=== PATIENT | female | born 1980 | race Caucasian/White ===

== ENCOUNTER 2016-11-18 04:59 | Inpatient (IN) | payer MEDICAID, SELFPAY ==
[2016-11-18 05:41] VITALS: BMI 28.7
[2016-11-18] MEDS: Lactated Ringer's 1,000 ML IV SCH ×2 (05:45→06:45)
[2016-11-18 07:00] VITALS: BP 115/69; PULSE 66; RESP 18; TEMP 97.9
[2016-11-18 07:04] LABS: BASO % 0.6 % (0.0-2.0); EOS # 0.6 K/uL (0.0-0.7); EOS % 8.9 % (0.0-4.0); HEMATOCRIT 33.5 % (34.0-47.0); LYMPH # 1.8 K/uL (1.0-4.3); LYMPH % 25.8 % (20.0-40.0); MEAN CELL VOLUME 82.4 fl (81.0-99.0); MEAN CORPUSCULAR HEMOGLOBIN 27.6 pg (27.0-31.0); MEAN CORPUSCULAR HGB CONC 33.5 g/dL (33.0-37.0); MEAN PLATELET VOLUME 9.3 fl (7.2-11.7); MONO # 0.4 K/uL (0.0-0.8); NEUT # 4.1 K/uL (1.8-7.0); NEUT % 58.7 % (50.0-75.0); RED CELL DISTRIBUTION WIDTH 16.5 % (11.5-14.5); WHITE BLOOD COUNT 7.1 K/uL (4.8-10.8)
[2016-11-18] MEDS ORDERED: Morphine 1 mg/ml preservative-free Inj(Duramorph) ONE (07:35)
[2016-11-18] MEDS ORDERED: Propofol 10 mg/ml Inj (20 ML) ONE (07:35)
[2016-11-18] MEDS ORDERED: Phenylephrine 10 mg/ml Inj ONE (07:36)
[2016-11-18] MEDS ORDERED: ePHEDrine 50 mg/ml Inj ONE (07:36)
[2016-11-18] MEDS ORDERED: Succinylcholine 200 mg/10 ml Inj IV ONE (07:39)
[2016-11-18] MEDS ORDERED: ceFAZolin 1 GM in Sodium Chloride 0.9% 100 ML IVPB ONE (08:35)
--- NOTE | 2016-11-18 08:49 | OBADHP ---
Datetime: 11/18/2016 05:49 Admit Comment, IP Provider: 36 YO F SABx1 presents for a repeat scheduled elective C Section an d BTL on 11/18/16. PAtient has been NPO since 10 pm last night. - Patient has brought a signed consent for a BTL, but does not have her records with her. - She denies LOF, VB, CTX PMH: none, Anemia Rubell: Immune HbsAg: neg GBS: unknown Social Hx: denies alcohol or drug use POBHX: 2 previous C Sections, 1 in [facility] and one here 3 years ago PSH: C Section Allergy: NKDA Medicine: PNV, Iron A: 36 YO F SABx1 presents for a repeat scheduled elective C Section and BTL on 11/18/16. - Intiate C section protocol - NPO - Anaesthesia consult - CBC, type and screen, RPR - Ancef - Lactated Ringer 2L bolus - Continuous monitoring - BTL consent in chart Shellie Castillo M.D. PGY-1 OB Hospitalist Addendum: Pt seen and examined by me. Agree w/ above. 36 yo at 39 wks w/ h/o previous c/s x 2, desires permanent sterilization admitted for repeat c/s, bilateral tubal ligati on. Consents signed. Cecelia Duron RN translated. (ES) Extremities - PN: Normal Abdomen - PN: Normal Lungs - PN: Normal Heart - PN: Normal HEENT - PN: Normal General - PN: Normal FHR - Baseline A Provider: 135 Comments, ACOG Physical Exam: US Bedside: Vertex IP Hx Assessment: The History has been Reviewed and is Current Vital Signs Provider: Reviewed; Within Normal Limits IP Chief Complaint: Scheduled Section NICHD Variability Prov Fetus A: Moderate 6-25bpm NICHD Accel Fetus A IP Provider: [id number] NICHD Decel Fetus A IP Provider: None IP Adm Impression: Term, intrauterine IP Admit Plan: Admit to unit; Initiate Section protocol
[2016-11-18] MEDS ORDERED: Oxytocin 30 units/LR 500ML 30 U/500 ML BAG IV ONE (09:02)
[2016-11-18] MEDS ORDERED: Oxytocin 30 units/LR 500ML 30 U/500 ML BAG IV SCH (10:22)
[2016-11-18] MEDS ORDERED: Oxycodone/Acetaminophen 5/325 mg Tab PO PRN ×3 (10:22→15:24)
--- NOTE | 2016-11-18 10:33 | OBDS ---
DELIVERY PERSONNEL Delivery Doctor: Sergei Bishop MD Anesthesiologist: Josselyn Bansal MD MATERNAL INFORMATION Delivery Anesthesia: Spinal Maternal Complications: None Provider Comments: Pre-op dx: 36 yo at 39 wks w/ previous c/s x 2, desires permanent sterilz ation Post-op dx: Same Procedure: Repeat low transverse section, bilateral tubal ligation Surgeon: Edna Parks Recreation Coordinator: Dr. Chano Moreno Anesthesiologist: Dr. Bansal Anesthesia: Spinal Findings: Viable female infant delivered through clear fluid at 09:45 am. Apgars 9 and 9. Wt 7#6 . Nl appearing uterus, tubes and ovaries. Permanent suture noted w/i fascia. Complications: None LABOR SUMMARY EDC: 11/25/2016 00:00 No. Babies in Womb: 1 Attempted: No Labor Anesthesia: None LABOR INFORMATION Reason for Induction: Not Applicable Oxytocin: N/A Group B Beta Strep: Done, Result Unknown Steroids Given: None Reason Steroids Not Administered: Not Applicable CSECTION DELIVERY Primary Indication: Repeat Elective CSection Urgency: Elective CSection Incidence: Repeat Labor: No Labor Elective: Nonelective BABY A INFORMATION Method of Delivery: Born in Route : No : N/A Forceps: N/A Vacuum Extraction: N/A PRESENTATION/POSITION BABY A Presentation: Cephalic Cephalic Presentation: Vertex Breech Presentation: N/A INFORMATION BABY A Gestational Age at Delivery: 39.0 Gestational Status: Term
--- NOTE | 2016-11-18 11:12 | OP ---
PROCEDURE DATE: 11/18/2016 PREOPERATIVE DIAGNOSIS: This is a 36-year-old L5X8-8-8-5 at 39 weeks with a history of previous section x 2. Desires permanent sterilization. POSTOPERATIVE DIAGNOSIS: This is a 36-year-old [id number] at 39 weeks with a history of previous section x 2. Desires permanent sterilization. PROCEDURE: A repeat low transverse section and a bilateral tubal ligation. SURGEON: Dr. Opal Bishop. WOOL SORTER: Dr. Chano Moreno. Dr. Moreno was the transport assistant and participated in the surgery for the entire duration of the case. He helped create exposure. He helped maintain hemostasis , operated throughout he case of the side of the patient that was across from him, and assisted in the delivery of the infant by applying fundal pressure. This case could not have been completed without his assistance. ANESTHESIOLOGIST: Dr. Bansal. ANESTHESIA: Spinal. FINDINGS: A viable female infant delivered through clear fluid at 9:45 a.m. Apgars 9 and 9 at 1 and 5 minutes, respectively. The weight was 7 pounds 6 ounces. Normal appearing uterus, tubes and ovaries, permanent suture noted within the fascia. ESTIMATED BLOOD LOSS: 700 mL. COMPLICATIONS: None. DESCRIPTION OF PROCEDURE: The patient was taken to the operating room where spinal anesthesia was placed. A Ortiz was placed in the bladder. She was then prepped and draped in the normal sterile fashion in the dorsal supine position with a leftward tilt. A time-out was done. The spinal was tested and found to be adequate. The vertical scar was initially cut out with a scalpel, followed by Bovie as the scar was held up with Allis clamps. The vertical incision was then carried through to the underlying layer of fascia with the Bovie. The fascia was incised and opened with the Bovie over a Arely clamp. There was noted to be a permanent suture seen throughout the fascia and this was cut out and removed as it was encountered. The peritoneum was then entered digitally. The peritoneal incision was then extended superiorly and inferiorly with good visualization of the bladder. The bladder blade was then inserted and the vesicouterine peritoneum was identified, was tented, grasped with the pickups and entered sharply with Metzenbaum scissors. The peritoneum was found to be scarred and so a bladder flap was not created. The bladder blade was then reinserted and the lower uterine segment was incised in a transverse fashion with the scalpel. The uterine incision was then extended digitally in a cephalocaudad direction. The bladder blade was removed and the infant's head delivered atraumatically. The nose and mouth were suctioned with the bulb suction. The cord was clamped and cut. The infant was handed off to the waiting fiber optic central office installer. Cord blood was collected. The placenta was then delivered as the uterus was massaged. The uterus was then exteriorized and cleared of all clots and debris with a dry sponge curettage. The uterine incision was repaired with 0 Vicryl in a running locked fashion. A figure-of- eight was placed in the center of the incision for hemostasis. Attention was then turned to the patient's right tube. A Delano clamp was then used to grasp the tube approximately a few centimeters from the cornual region. A 3 cm segment of tube was then ligated with plain gut and excised. Good hemostasis was noted. The left fallopian tube was then ligated and a 3 cm segment was excised in a similar fashion. A second [id number] was placed in the center of the uterine incision for hemostasis. The abdomen was then well irrigated and the uterus was then returned to the abdomen. The gutters were cleared of all clots. The tubes were re-examined and found to be hemostatic. The uterine incision was then re-examined and found to be hemostatic. An area to the left side of the fascia superiorly was then reinforced with 0 Vicryl. The peritoneum and fascia were then approximated using a running stitch of 0 Vicryl. The subcutaneous fat was well irrigated. A 2-0 plain gut was used with interrupted stitches to close the space of the subcutaneous fat. The skin was then closed with dolly. The patient tolerated the procedure well. Sponge, lap, and needle counts were correct. One gram of Ancef was given prior to the procedure. The patient was taken to the recovery room in stable condition. Opal Bishop MD cc: [id number] TT: 11/18/2016 11:11:35 donovan CROSS
[2016-11-18] MEDS ORDERED: Dexamethasone 4 mg/1 ml IV ONE (14:40)
[2016-11-18] MEDS ORDERED: Simethicone 80 mg Chewtab PO SCH (16:00)
[2016-11-18] MEDS: Simethicone 80 mg Chewtab PO SCH ×2 (16:42→22:19)
[2016-11-19] MEDS: Simethicone 80 mg Chewtab PO SCH ×3 (04:49→16:37)
[2016-11-19] MEDS: Oxycodone/Acetaminophen 5/325 mg Tab PO PRN ×3 (06:13→19:27)
[2016-11-19 09:34] LABS: BASO % 0.4 % (0.0-2.0); EOS # 0.2 K/uL (0.0-0.7); EOS % 2.5 % (0.0-4.0); HEMATOCRIT 31.3 % (34.0-47.0); LYMPH # 2.1 K/uL (1.0-4.3); MEAN CELL VOLUME 82.5 fl (81.0-99.0); MEAN CORPUSCULAR HEMOGLOBIN 26.9 pg (27.0-31.0); MEAN CORPUSCULAR HGB CONC 32.6 g/dL (33.0-37.0); MEAN PLATELET VOLUME 8.8 fl (7.2-11.7); MONO # 0.5 K/uL (0.0-0.8); NEUT # 5.2 K/uL (1.8-7.0); NEUT % 65.1 % (50.0-75.0); RED CELL DISTRIBUTION WIDTH 17.3 % (11.5-14.5)
--- NOTE | 2016-11-19 15:12 | OBPPN ---
Datetime: 11/19/2016 06:36 PP Pain Prov: Within normal limits PP Nausea Prov: Denies PP Flatus Prov: Yes PP BM Prov: No PP Breasts Prov: Normal PP Heart Prov: Normal PP Lungs Prov: Normal PP Abdomen/Uterus Prov: Normal PP Lochia Prov: Normal PP Extremities Prov: Normal PP C/S Incision Prov: Normal PP Progress Prov: Normal PP Comments Phys Exam Prov: Fundus Firm at level of umbilicus Incision site: C/D/I, dolly intact. No erythema or redness PP Impression Prov: Normal progression PP Plan Prov: Continue present management PP Progress Note Prov: 36 yo , SABx1 seen and examined bedside. Patient denies any overnight e vents. She reports mild/pelvic pain controlled w/ pain meds. Breast/bottle feeding w/o difficulty. Tolerating PO liquid well, will advance diet today. Lochia is same as menses in volume. Voiding nhi sarah . Pt has passed gas but has not had a bowl movement yet. Denies fevers, chills, n/v/d, CP/SOB, l ightheadedness and calf pain. Assessment: 36 yo , s/p repeat c section on 11/18/16 @ 9:45 am tolerating pain w/ medication , tolerating oral intake, adequate urine output, doing well on POD#1. Plan: - Mild/mod pain PRN: Ibuprofen 600mg PO Q6 PRN pain - Moderate to severe pain Percocet -Encourage breast feeding and ambulation - Advance diet to regular Shellie Castillo PGY1 OBH ADDENDUM: Pt seen _ examined by me. Agree with above assessment and plan. IP PP Procedures: None Vital Signs Provider PP: Reviewed; Within Normal Limits
[2016-11-20] MEDS: Simethicone 80 mg Chewtab PO SCH ×6 (01:00→21:09)
[2016-11-20] MEDS: Oxycodone/Acetaminophen 5/325 mg Tab PO PRN ×2 (01:01→21:09)
[2016-11-20 08:11] LABS: BASO % 0.3 % (0.0-2.0); EOS # 0.5 K/uL (0.0-0.7); EOS % 6.1 % (0.0-4.0); LYMPH # 1.9 K/uL (1.0-4.3); LYMPH % 24.9 % (20.0-40.0); MEAN CELL VOLUME 81.9 fl (81.0-99.0); MEAN CORPUSCULAR HEMOGLOBIN 27.3 pg (27.0-31.0); MEAN CORPUSCULAR HGB CONC 33.3 g/dL (33.0-37.0); MEAN PLATELET VOLUME 8.8 fl (7.2-11.7); MONO # 0.3 K/uL (0.0-0.8); MONO % 4.4 % (0.0-10.0); NEUT # 4.9 K/uL (1.8-7.0); NEUT % 64.3 % (50.0-75.0); RED CELL DISTRIBUTION WIDTH 17.3 % (11.5-14.5); WHITE BLOOD COUNT 7.6 K/uL (4.8-10.8)
[2016-11-21] MEDS: Simethicone 80 mg Chewtab PO SCH ×2 (05:46→13:18)
--- NOTE | 2016-11-21 09:03 | OBPPN ---
Datetime: 11/21/2016 07:04 PP Pain Prov: Within normal limits PP Nausea Prov: Denies PP Flatus Prov: Yes PP BM Prov: Yes PP Breasts Prov: Normal PP Heart Prov: Normal PP Lungs Prov: Normal PP Abdomen/Uterus Prov: Normal PP Lochia Prov: Normal PP Vulva/Perineum Prov: Normal PP CVA Tenderness Prov: Normal PP Extremities Prov: Normal PP C/S Incision Prov: Normal PP Progress Prov: Normal PP Comments Phys Exam Prov: Uterus: Firm at level umbilicus Incision: C/D/I. clasic with dolly PP Impression Prov: Normal progression PP Plan Prov: Continue present management; Discharge PP Progress Note Prov: 36 y/o seen and examined at bedside. Patient had uneventful ove rnight. Patient reports mild pelvic pain controlled w/ pain meds. AAO ambulating w/o dizziness. Jessica astfeeding/bottle feeding w/o difficulty Tolerating PO diet well. Lochia is less than menses in v olume. Voiding w/ no blood noted . Reports flatus and 2 BM yesterday . Denies fevers, chills, n/v /d, CP/SOB, lightheadedness and calf pain. Assessment: 36 y/o s/p schedule repeat C/section on 11/18/2016 @ 9:45 AM tolerating jeannette n w/ medication, tolerating oral intake, adequate urine output, doing well on POD3. Plan: Ibuprofen 600 mg 1 tab Q6h PO prn for mild pain. -Percocet 5/325 mg 1-2 tabs PO Q6h prn for mod/severe pain. Encourage breast feeding and ambulation. -Discharge Home Today Thor Tubbs PGY-1 OB Hospitalist note: pt seen on rounds this morning. She is ready to go home. Follow up in 1-2w Vital Signs Provider PP: Reviewed; Within Normal Limits Datetime: 11/20/2016 09:00 IP PP Procedures: None
--- NOTE | 2016-11-21 09:04 | OBDCSUM ---
Datetime: 11/21/2016 07:05 Discharged to, Provider: Home Follow up at, Provider: [facility] Disch Instr Activity: Normal activity; May Shower Disch Instr Diet: Regular Discharge Instructions, Provider: Routine instructions given Discharge Time: 11/21/2016 07:05 Follow up in weeks, Provider: 7 days Disch Activity Restrictions: No exercising; No lifting; No driving; No sexual activity; Nothing in v agina - [place], tampons, douche Discharge Comment, Provider: 36 y/o s/p repeat schedule C/section @ 39 weeks GA Delivered baby girl on 11/18/16 @ 9:45 am,weight 3350 g , : 9-9 Patient doing well, stable for discharge. Prescription given for pain -Encourage -Ibuprofen 600 mg PO 1 tab PO Q6h for pain PRN -Percocet 5/325 mg 1-2 tab PO Q 6h PRN pain -Discharge today Ambulate w/ caution, nothing in vagina, no heavy lifting, avoid stairs, if excessive bleeding or f ever without relief from Tylenol go to ED - Advised for F/U [facility] in 7 days and 2-3 days for with training program developer. Thor Tubbs PGY1 OB Hospitalist note: Pt seen on rounds this morning. Agree with PGY1 note. MAHNDO Discharge Diagnosis Prov Other: Schedule C section
== END 2016-11-21 12:55 | disposition home or self-care (01) | DRG 766 ==
LOC: H.EROB2 04:59 → H.L&D 05:11 → H.OB/GYN 15:26
PROVIDERS: ADMIT Obstetrics & Gynecology; ATTEND Obstetrics & Gynecology
PROC: 10D00Z0 Extraction of Products of Conception, High, Open Approach (ICD-10-PCS; principal; 2016-11-18)
PROC: 0UL70ZZ Occlusion of Bilateral Fallopian Tubes, Open Approach (ICD-10-PCS; 2016-11-18)
PROC: 4A1HXCZ Monitoring of Products of Conception, Cardiac Rate, External Approach (ICD-10-PCS; 2016-11-18)
DX: O34.212 Maternal care for vertical scar from previous cesarean delivery (principal); N85.8 Other specified noninflammatory disorders of uterus; Z3A.39 39 weeks gestation of pregnancy; Z37.0 Single live birth; O09.523 Supervision of elderly multigravida, third trimester; Z30.2 Encounter for sterilization